=== PATIENT | male | born 1980 | race Caucasian/White ===

== ENCOUNTER 2016-10-25 13:03 | Emergency (ER) | payer SELFPAY ==
[2016-10-25 13:03] VITALS: BMI 21.7
[2016-10-25 13:05] VITALS: TEMP 98.2
--- NOTE | 2016-10-25 13:56 | EDPRACDOC ---
- General Information Stated Complaint: BILATERAL LOWER JAW/DENTAL PAIN Time Seen by Provider: 10/25/16 13:45 Home Medications: Home Medications Penicillin V Potassium 500 mg PO TID #30 tablet 07/13/16 Amoxicillin/Clavulanate Potas. [Augmentin] 875 mg PO BID #20 tab 09/01/16 Hydrocodone Bit/Acetaminophen [Hydrocodon-Acetaminophen 5-325] 1 tab PO Q6H PRN #14 tab 09/01/16 Amoxicillin/Clavulanate Potas. [Augmentin] 875 mg PO BID #20 tab 09/16/16 Ibuprofen 600 mg PO TID #20 tablet 09/16/16 Tramadol HCl [Ultram] 50 mg PO Q4-6H #30 tablet 09/16/16 Amoxicillin Trihydrate [Amoxicillin] 500 mg PO TID #30 tab 10/25/16 Meloxicam [Mobic] 7.5 mg PO BID #20 tab 10/25/16 Allergies/Adverse Reactions: Allergies Allergy/AdvReac Type Severity Reaction Status Date / Time No Known Allergies Allergy Verified 09/16/16 10:12 - History of Present Illness Onset: 3 DAYS HPI: PT PRESENTS TODAY WITH RIGHT LOWER AND LEFT UPPER TOOTH PAIN X 3 DAYS. NO FEVER. NO APPARENT DISTRESS. Reported Tooth Problem: 29, 14 Pain Severity: Reports: Moderate Relevant History of: Reports: None Modifying Factors: improves with: Cold, Chewing Associated Signs and Symptoms: Reports: None ED Past Medical History - History Reviewed Yes Nurses notes reviewed and agree except as marked - Patient Medical History Psychological History: Denies: Depression Additional Past Medical History: CHRONIC BACK PAIN Surgical History: Reports: Other (EYE SURGERY) - Family Medical History Reports: Cancer (MOTHER), Stroke (FATHER), Cardiac Disorders (FATHER) - Social Medical History Smoking Status: Heavy tobacco smoker (5 or more cigarettes/day or daily pipe/ cigar) EDM Review of Systems - Review of Systems ROS Negative Except as Marked: Yes All systems reviewed and were negative except as marked Constitutional: No Symptoms Reported Eyes: No Symptoms Reported Ears: No Symptoms Reported Throat: No Symptoms Reported Nose: No Symptoms Reported Mouth: Tooth Pain Respiratory: No Symptoms Reported Cardiovascular: No Symptoms Reported Gastrointestinal: No Symptoms Reported Neurological: No Symptoms Reported Musculoskeletal: No Symptoms Reported Integumentary: No Symptoms Reported - Physical Exam Constitutional: Alert (Awake), No apparent distress Oriented to: Time, Person, Place Last recorded Vital Signs: Last Vital Signs Temp 98.2 F 10/25/16 13:04 Pulse 92 10/25/16 13:04 Resp 20 10/25/16 13:04 BP 141/77 10/25/16 13:04 Pulse Ox 97 10/25/16 13:04 Oxygen Pulse Oxygen Saturation 97 O2 Device Room Air Oxygen Flow Rate Fraction of Inspired Oxygen ( FIO2) - HEENT Head: Swelling (NOTED FACIAL SWELLING TO RIGHT LOWER JAW D/T ABSCESS) Eye Exam: Normal Oropharynx: Other (ABSCESSED TOOTH TO RIGHT LOWER JAW AND HOLE TO TOOTH IN LEFT UPPER JAWJ; NO POINTING) Tympanic Membrane: Normal ENT EAC: Normal Nose: No Symptoms Reported Neck: Normal, Denies Pain, Midline - Respiratory/Cardiovascular Respiratory: Normal - CTA Cardiovascular: Normal - GI Palpation: Normal Tenderness: Non tender - Musculoskeletal Back: Normal Extremities: Normal - Integumentary Skin: Normal Lymphatics: Normal - Neurologic Cerebellar: Normal Mood Description: Normal Thought: Coherent Perception: Normal ED Tooth Problem Exam - HEENT Face: Swelling Teeth: Right: Molar-2 Lower (ABSCESS), Left: Molar-2 Upper (HOLE) Gingiva: Tender, Swelling Palate: Normal Mouth Range of Motion: Normal Sinuses: Normal Oropharynx: Normal Neck: Normal, Denies Pain, Midline Decision Time to Discharge: 13:55 - Departure Disposition: Home Condition: Good Final Diagnosis: Abscessed tooth Instructions: Dental Abscess (ED) Education/Counseling Given To: Patient Education/Counseling Given Regarding: Diagnosis, Treatment, Follow Up Referrals: None,No Provider [Primary Care Provider] - One Week [facility] [NonStaff] - One Week Prescriptions: New Amoxicillin Trihydrate [Amoxicillin] 500 mg PO TID #30 tab Meloxicam [Mobic] 7.5 mg PO BID #20 tab No Action Penicillin V Potassium 500 mg PO TID #30 tablet Amoxicillin/Clavulanate Potas. [Augmentin] 875 mg PO BID #20 tab Hydrocodone Bit/Acetaminophen [Hydrocodon-Acetaminophen 5-325] 1 tab PO Q6H PRN #14 tab PRN Reason: Pain Amoxicillin/Clavulanate Potas. [Augmentin] 875 mg PO BID #20 tab Ibuprofen 600 mg PO TID #20 tablet Tramadol HCl [Ultram] 50 mg PO Q4-6H #30 tablet Additional Instructions: [facility] [phone]
[2016-10-25 14:06] VITALS: BP 136/74; PULSE 88
== END 2016-10-25 14:07 | disposition home or self-care (01) ==
LOC: EDMC 13:03
DX: K04.7 Periapical abscess without sinus (principal)
CPT/HCPCS: 99282